=== PATIENT | female | born 1975 | race Caucasian/White ===

== ENCOUNTER → 2017-01-03 | Day surgery (SDC) | payer OTHER ==
[~2017-01-03] VITALS: Ht 165.1 cm; Wt 136.1 kg
[~2017-01-03] MED LIST: ABILIFY PO; EFFEXOR XR PO
--- NOTE | 2017-01-03 09:14 | Operative Report ---
Operative/Inv Procedure Report Surgery Date: 01/03/17 Name of Procedure: Laparoscopic Cholecystectomy Pre-Operative Diagnosis: Cholelithiasis/Cholecystitis Post-Operative Diagnosis: Same Estimated Blood Loss: less than 50ml Surgeon/Project Controls Specialist: KD HUNTER DO Anesthesia: general endotracheal tube IV Fluids: 900 cc Drains: None Specimens: Gallbladder Complications: None Condition: Stable Operative Indication: This is a 42-year-old female who underwent an abdominal ultrasound as part of a workup for bariatric surgery. She was found to have cholelithiasis and was complaining of on and off postprandial pain. A laparoscopic cholecystectomy was discussed in detail. All risks including but not limited to bleeding, infection , bile leak, and injury to surrounding duct/bowel were discussed in detail. The patient understood everything and decided to proceed. Operative/Procedure Note Note: The patient was brought to the operating room and placed on the operating room table in supine position. Venodyne stockings were placed and adequate general endotracheal anesthesia was obtained. The patient was prepped and draped in standard surgical fashion. We began the procedure by making a 2 cm transverse incision in the infraumbilical crease. The incision was carried down to the fascia, once the fascia was clearly visualized it was picked up between 2 raj clamps. The fascia was divided in the midline and once we entered the peritoneum 2 stay 0 Vicryl sutures were placed on each side. A 12 mm blunt port was inserted and the abdominal cavity was insufflated to 15 mmHg. A 10 mm 30 laparoscope was introduced and upon initial examination no obvious gross pathology was seen. We did note a distended gallbladder in the right upper quadrant. Accessory trocars were placed, all 5 mm, one in the epigastrium and 2 in the right upper quadrant (one in the midclavicular line and one in the anterior axillary line, both 2 fingerbreadths below the costal margin). The gallbladder was grasped with the lateralmost trocar and retracted up over the liver. Using the other 2 accessory trocars the infundibulum was grasped and the peritoneum was lysed using blunt dissection and using hook electrocautery. The cystic duct and cystic artery were visualized. The common bile duct was visualized and it was away from our area of dissection. The cystic duct and artery were skeletonized and divided between clips, 3 clips to stay and one clip on the gallbladder side for the duct and 2 clips to stay and one clip on the gallbladder side for the artery. The gallbladder was dissected off the liver bed using hook electrocautery maintaining hemostasis. Prior to completely removing the gallbladder off the liver bed we examined the area of dissection no obvious bile leak or bleeding was noted, the clips appeared to be in good position. The gallbladder was completely detached from the liver bed. We switched to a 5 mm laparoscope and a 10 mm Endobag was introduced through the umbilical trocar site. The gallbladder was placed in the bag and removed through the umbilicus. The abdomen was reinsufflated. We switched back to a 10 mm laparoscope and examined our area of dissection. No obvious bile leak or bleeding was noted. The right upper quadrant was irrigated until clear. All ports were removed under direct visualization, no obvious bleeding was noted. The umbilical trocar site was closed using 0 Vicryl suture. The skin was closed using 4-0 Monocryl. Steri-Strips and dressings were placed. The patient was successfully extubated and transferred to the recovery room in stable condition. The patient tolerated the procedure well with no complications. Findings: Distended gallbladder, multiple stones CC: BRITTANI GANN,FRANCIA Crump
== END ==
LOC: STS 02:49
DX: K80.10 Calculus of gallbladder with chronic cholecystitis without obstruction (principal); E66.01 Morbid (severe) obesity due to excess calories; Z68.43 Body mass index [BMI] 50.0-59.9, adult
CPT/HCPCS: 81025; 88304; J0690; J1644; J2250

== ENCOUNTER 2017-10-03 03:51 | Inpatient (IN) | payer OTHER ==
[~2017-10-03] VITALS: Ht 165.1 cm; Wt 132.4 kg
[~2017-10-03 03:51] MED LIST changes: +ABILIFY2 MG PO; +BUSPIRONE HCL15 M1 PO; +EFFEXOR XR75 M1 PO; +LISINOPRIL20 M1 PO
--- NOTE | 2017-10-03 13:58 | Operative Report ---
Operative/Inv Procedure Report Surgery Date: 10/03/17 Name of Procedure: Laparoscopic Sleeve Gastrectomy, Laparoscopic Hiatal hernia repair Pre-Operative Diagnosis: Morbid Obesity BMI 51, HTN, EVANS, Hiatal Hernia Post-Operative Diagnosis: Same Estimated Blood Loss: less than 50ml Surgeon/Leakage Tester: Ovi Garcia DO Anesthesia: general endotracheal tube IV Fluids: 1200 cc Drains: None Specimens: Stomach Complications: None Condition: Stable Operative Indication: This is a 42-year-old female that presented to the office for workup for bariatric surgery. After appropriate workup was completed I discussed with the patient the band, the sleeve, and the gastric bypass. The patient chose to undergo a sleeve gastrectomy. All risks including but not limited to bleeding, infection, leak, stricture, injury to surrounding bowel/esophagus/stomach/liver/ spleen, long-term reflux, DVT/PE, and mortality of 07/999 patients were discussed in detail. The patient understood everything and decided to proceed. Operative/Procedure Note Note: The patient was brought to the operating room and placed on the operating room table in supine position. Venodyne stockings were placed and adequate general endotracheal anesthesia was obtained. The patient was prepped and draped in standard surgical fashion. Began the procedure by making a 2 cm transverse incision supraumbilically and slightly to the left of the midline. Then using a 12 mm clear Visiport and a 10 mm 0 laparoscope, the abdominal cavity was accessed. Great care was taken to go through the anterior rectus sheath, the posterior rectus sheath, and through the peritoneum. Once we entered the peritoneum the abdominal cavity was insufflated to 15 mmHg. Upon initial examination no obvious gross pathology was seen. Accessory trocars were placed, 5 mm in the epigastrium for the Cesar liver retractor. The retractor was inserted and the liver was retracted anteriorly exposing the hiatus, small hiatal hernia was seen. 5 mm ports were placed in the right and left upper quadrant, a 5 mm left lateral port, and a 15 mm right lateral port. Began the procedure by mobilizing the greater curvature of the stomach approximately 7 cm from the pylorus. Once the retrogastric space was reached the whole greater curvature was mobilized maintaining hemostasis using Harmonic scalpel. Full hiatal dissection was performed, a small sliding hiatal hernia was seen. The left lazarus of the diaphragm was dissected away from the esophagus, reducing the hernia sac. We then brought our attention to the right lazarus, the pars flaccida was opened until the right lazarus was clearly visualized. Following this the right lazarus was dissected away from the esophagus as well and the esophagus was circumferentially dissected out of the chest. At the completion of dissection the esophagus was in the abdominal cavity for about 2-3 cm. The esophagus was retracted anteriorly and the hiatus was closed using 2-0 Ticron suture. At the completion of the closure there was ample room for the esophagus and the hiatus was adequately closed. Posterior adhesions were taken down using Harmonic scalpel as well. Once the stomach was adequately mobilized a 38 Setswana bougie was inserted and placed along the lesser curvature of the stomach. Once the bougie was in the appropriate position we began creating our sleeve, two 60 mm black staple loads with seamguard followed by two 60 mm purple staple loads with seamguard as well and finished with 60 mm purple plain load. Great care was taken to leave ample room at the incisura angularis, to prevent any twisting or kinking of the sleeve, to stay lateral to the esophagogastric fat pad, and to do a full fundal excision. At the completion of the staple line the staple line was examined, it appeared intact. Some bleeding was noted and was controlled using endoclips and 2-0 Vicryl suture imbricating the staple line. The bougie was removed, the sleeve was lying nicely without any twisting or kinking. The resected stomach was removed through the right lateral port site. The port and the left upper quadrant were irrigated until clear. All ports were removed under direct visualization no obvious bleeding was noted. The 15 mm port site fascia was closed using 0 Vicryl suture. The skin was closed using 4-0 Monocryl. Steri-Strips and dressings were placed. The patient was successfully extubated and transferred to the recovery room in stable condition. The patient tolerated the procedure well with no complications. Findings: 3 cm sliding hiatal hernia, 38 Fr bougie CC: Sonia GANN,Stanislav Curmp
--- NOTE | 2017-10-03 14:04 | Admission Core Measures ---
Acute Coronary Syndrome (CM) ACS Core Measures Acute Coronary Syndrome Diagnosis No Congestive Heart Failure (NEW) CHF Core Measures Congestive Heart Failure Diagnosis No Cerebrovascular Accident (NEW) CVA Core Measures CVA/TIA Diagnosis No Venous Thromboembolism VTE Core Brice (View Protocol) VTE Risk Factors Surgery No Mechanical VTE Prophylaxis d/t N/A MechProphylax Ordered No VTE Pharm Prophylaxis d/t NA PharmProphylax ordered Problem List As ranked by this Provider includes Assessment & Plan 1. Morbid obesity 2. Hypertension 3. Depression 4. S/P laparoscopic sleeve gastrectomy 5. History of repair of hiatal hernia HOME MEDS Home Med List Aripiprazole (Abilify) 2 MG TABLET 1 TAB PO DAILY DEPRESSION (Reported) Buspirone HCl 15 MG TABLET 1 TAB PO BID DEPRESSION (Reported) Lisinopril 20 MG TABLET 1 TAB PO DAILY BP (Reported) Venlafaxine HCl (Effexor XR) 75 MG CAP.ER.24H 1 CAP PO DAILY DEPRERSSION ( Reported)
--- NOTE | 2017-10-03 14:08 | Surg Short-stay <48hrs Dis Sum ---
Visit Information Visit Dates Admission Date: 10/03/17 Surgical Short Stay DC Summary Admission Diagnosis: Morbid Obesity (BMI 51), HTN, EVANS, Hiatal Hernia Final Diagnosis: same as above, s/p Surgery Date: 10/03/17 Name of Procedure: Laparoscopic Sleeve Gastrectomy, Laparoscopic Hiatal hernia repair Procedure(s): Surgery Date: 10/03/17 Name of Procedure: Laparoscopic Sleeve Gastrectomy, Laparoscopic Hiatal hernia repair Summary/Significant Findings: Electively scheduled laparoscopic sleeve gastrectomy, and laparoscopic hiatal hernia repair by on 10/03/17, for history of morbid obesity (BMI 51), HTN, EVANS, and hiatal hernia. Started on stage 1 bariatric diet post-operatively. Pain control transitioned from iv to oral medication. Discharged to home once tolerating stage 1 bariatric diet. Lovenox teaching done prior to discharge home , for pre-op risk score of 7. Condition at Discharge: stable Discharge Disposition: home or self care Discharge instructions provided to patient/family: Yes Post discharge follow-up plan: one week follow up with lovenox teaching done for continued use at home Copies to: Sonia GANN,Stanislav Crump
--- NOTE | 2017-10-03 14:11 | Patient Discharge Instructions ---
Discharge Instructions General Discharge Information You were seen/treated for: Morbid Obesity BMI 51, HTN, EVANS, Hiatal Hernia You had these procedures: Surgery Date: 10/03/17 Name of Procedure: Laparoscopic Sleeve Gastrectomy, Laparoscopic Hiatal hernia repair Watch for these problems: fever>101.3, increased pain, redness/swelling/drainage, dizziness, shortness of breath, chest pains No bath, but you may shower: Yes Other wound care: ok to remove outer dressings. leave white steri strips in place. keep incisions clean & dry. Diet Continue normal diet: No Recommended Diet: Bariatric Additional DIET Information: weekly bariatric stage diet advancement, as directed, as tolerated Activity Full Activity/No Limits: No Activity Self Limited: Yes Pounds, do NOT lift more than: 10 Other activity limits: no heavy lifting. no strenuous activity. walk frequently. Acute Coronary Syndrome Inclusion Criteria At DC or during hospital stay patient has or had the following: ACS DIAGNOSIS No Discharge Core Measures Meds if any: Prescribed or Continued at Discharge Meds if any: NOT Prescribed or Continued at Discharge Congestive Heart Failure Inclusion Criteria At DC or during hospital stay patient has or had the following: CHF DIAGNOSIS No Discharge Core Measures Meds if any: Prescribed or Continued at Discharge Meds if any: NOT Prescribed or Continued at Discharge Cerebrovascular accident Inclusion Criteria At DC or during hospital stay patient has or had the following: CVA/TIA Diagnosis No Discharge Core Measures Meds if any: Prescribed or Continued at Discharge Meds if any: NOT Prescribed or Continued at Discharge Venous thromboembolism Inclusion Criteria VTE Diagnosis No VTE Type NONE VTE Confirmed by (Test) NONE Discharge Core Measures - Per Current guidelines, there needs to be overlap - treatment for the first 5 days of Warfarin therapy. - If discharged on Warfarin prior to 5 days of - overlap therapy, the patient will need to be - assessed for post discharge needs including - *Post discharge parental anticoagulation - *Warfarin and/or parental anticoagulation education - *Follow up date to check INR post discharge At least 5 days overlap therapy as Inpatient No Meds if any: Prescribed or Continued at Discharge Note: Overlap Therapy is Warfarin and Anticoagulant Meds if any: NOT Prescribed or Continued at Discharge
[2017-10-03 15:54] VITALS: BP 140/80
[2017-10-03 19:55] VITALS: BP 130/100
--- NOTE | 2017-10-03 20:13 | PN- Bariatrics ---
Subjective Subjective: poc s/p lap sleeve/hh repair resting comfortably no major complaints at this time deneis cp, sob, no vomiting some nausea but states she feels better with reletex bracelet Objective Vital Signs and I&Os Vital Signs Date Time Temp Pulse Resp B/P B/P Pulse O2 O2 Flow FiO2 Mean Ox Delivery Rate 10/03 1954 98.2 88 18 130/100 93 Room Air 10/03 195 Room Air Room Air 10/03 1800 95 Room Air 10/03 1600 92 Room Air 10/03 1554 98.0 96 18 140/80 92 Room Air Intake & Output 10/03 1600 10/03 0800 10/03 0000 / 1600 10/02 0800 10/02 0000 Intake Total Output Total Balance Patient 292 lb Weight Weight Reported by Patient Measurement Method Physical Exam: cv: rrr lungs: clear abd: soft, drsg dry expected pain to palp ext: warm distal cms intact Assessment/Plan Assessment/Plan surgical stable plan encouraged to ambulate titrate pain meds antiemetics as needed re eval in am for possible ugi if nausea persists Core Measures Venous Thromboembolism VTE Risk Factors Surgery No Mechanical VTE Prophylaxis d/t N/A MechProphylax Ordered No VTE Pharm Prophylaxis d/t NA PharmProphylax ordered
[2017-10-04] VITALS: BP 126/98
[2017-10-04 06:54] VITALS: BP 122/84
--- NOTE | 2017-10-04 07:47 | PN- Bariatrics ---
Subjective Subjective: Patient reports postop pain, which is well controlled. Denies n/v/f/c. Reports having nothing to eat or drink after surgery. Denies passing flatus, lightheadedness or dizziness. Objective Vital Signs and I&Os Vital Signs Date Time Temp Pulse Resp B/P B/P Pulse O2 O2 Flow FiO2 Mean Ox Delivery Rate 10/04 0654 98.9 82 18 122/84 91 / 0400 94 Room Air 10/04 0200 93 Room Air 10/04 0000 93 Room Air 10/04 0000 98.4 89 18 126/98 93 / 2200 93 Room Air / 1955 98.2 88 18 130/100 93 Room Air 10/03 1952 Room Air Room Air / 1800 95 Room Air 10/03 1600 92 Room Air 10/03 1554 98.0 96 18 140/80 92 Room Air Intake & Output 10/04 1600 10/04 0800 /08 0000 / 1600 10/03 0800 03/ 0000 Intake Total 530 1725 40 Output Total 1200 600 0 Balance -670 1125 40 Intake, IV 530 1725 40 Intake, Oral 0 0 0 Number 0 0 0 Bowel Movements Output, Urine 1200 600 0 Patient 292 lb 292 lb Weight Weight Reported by Patient Measurement Method Physical Exam: Gen - nad Cardiac - s1s2, rrr Lungs - ctab Abd - soft, obese, 6 dressings c/d/i, appropriately tender, no rebound/guarding noted, absent bowels sounds Current Medications: Current Medications Sig/Meeta Start time Last Medication Dose Route Stop Time Status Admin Acetaminophen 1,000 MG Q6 10/03 1800 AC 10/04 N/A 1 UNIT IV 10/04 1214 0544 Aripiprazole 2 MG DAILY 10/04 1000 AC PO Buspirone HCl 15 MG BID 10/03 2200 AC 10/03 PO 2057 Cefazolin Sodium 3,000 MG IQ8 10/03 2000 CAN IV 10/04 0801 Cefazolin Sodium 3,000 MG Q8H 10/03 2000 DC 10/04 Sodium Chloride 100 ML IV 10/04 0459 0429 Cefazolin Sodium 3,000 MG ONCE 10/03 0000 DC IV 10/03 2359 Dexamethasone 8 MG ONCE PRN 10/03 1615 AC IV PUSH Dextrose/Lactated 1,000 ML Q8H 10/03 1615 DC 10/03 Ringer's IV 1627 Fentanyl Citrate 250 MCG .STK-MED ONE 10/03 1135 DC IM 10/03 1136 Heparin Sodium 5,000 UNIT Q8 10/03 2200 AC 10/04 (Porcine) SC 0547 Heparin Sodium 0 .STK-MED ONE 10/03 0922 DC (Porcine) .ROUTE Heparin Sodium 5,000 UNIT ONCE 10/03 0000 DC (Porcine) SC 10/03 2359 Hydrocodone Bitart/ 15 ML Q6P PRN 10/03 1615 AC 10/03 Acetaminophen PO 1630 Ketorolac 30 MG Q6-PRN PRN 10/03 1800 AC Tromethamine IV Lactated Ringer's 1,000 ML Q13H 10/04 0830 AC IV Lactated Ringer's 1,000 ML Q8H 10/04 0730 DC IV Lisinopril 20 MG DAILY 10/04 1000 AC PO Midazolam HCl 2 MG .STK-MED ONE 10/03 1135 DC IM 10/03 1136 Morphine Sulfate 2 MG Q2-3 HRS NEEDED.. 10/03 1615 AC IV Morphine Sulfate 4 MG .STK-MED ONE 10/03 1449 DC IM 10/03 1450 Ondansetron HCl 4 MG Q6P PRN 10/03 1615 AC 10/04 IV 0201 Pantoprazole Sodium 40 MG DAILY 10/04 1000 AC IV Simethicone 40 MG Q6P PRN 10/03 1615 AC 10/04 PO 0015 Venlafaxine HCl 75 MG DAILY 10/04 1000 AC PO Results Last 48 Hours of Labs: Laboratory Tests 10/04 10/03 0630 0856 Chemistry Sodium Pending Potassium Pending Chloride Pending Carbon Dioxide Pending Anion Gap Pending BUN Pending Creatinine Pending BUN/Creatinine Ratio Pending Glucose Pending Magnesium Pending Hematology CBC w Diff Pending WBC Pending RBC Pending Hgb Pending Hct Pending MCV Pending MCH Pending MCHC Pending RDW Pending Plt Count Pending MPV Pending Urines Urine Test NEGATIVE Assessment/Plan Assessment/Plan 42 F POD 1 s/p lap sleeve, who is recovering well Cancel UGI Advance to stg 1 diet Cont IVF Pain meds prn Home med on board GI ppx on board DVT ppx - hsq/alps/ambulate Encourage IS Lovenox teaching F/U labs Anticipate d/c within 24-48 hrs D/w Dr. Garcia Core Measures Venous Thromboembolism VTE Risk Factors Surgery No Mechanical VTE Prophylaxis d/t N/A MechProphylax Ordered No VTE Pharm Prophylaxis d/t NA PharmProphylax ordered
[2017-10-04 08:00] VITALS: BP 118/72
[2017-10-04 08:34] LABS: ABSOLUTE BASOPHIL COUNT 0 /CUMM (0.0-0.2); ABSOLUTE EOSINOPHIL COUNT 0 /CUMM (0.0-0.7); ABSOLUTE LYMPH COUNT 1.1 /CUMM (1.2-3.4); BASOPHIL % 0 % (0.0-2.0); EOSINOPHIL % 0 % (0-5); GRANULOCYTE % 86.2 % (42.2-75.2); HEMATOCRIT 41.4 % (37-47); MEAN CORPUSCULAR HGB 28.8 PG (27.0-31.0); MEAN CORPUSCULAR HGB CONC 32.9 G/DL (33.0-37.0); MEAN CORPUSCULAR VOLUME 87.6 FL (81.0-99.0); MEAN PLATELET VOLUME 9.1 FL (7.4-10.4); PLATELET COUNT 419 /CUMM (130-400); RBC DISTRIBUTION WIDTH 14.7 % (11.5-14.5); RED BLOOD CELL CT 4.72 /CUMM (4.20-5.40); WHITE BLOOD CELL COUNT 15.1 /CUMM (4.8-10.8)
[2017-10-04 12:00] VITALS: BP 122/80
[2017-10-04 14:00] VITALS: BP 130/83
[2017-10-04] MEDS ORDERED: VENLAFAXINE H37.5 M3 PO (14:52)
[2017-10-04] MEDS ORDERED: HYDROCODON-ACET15 ML PO (15:10)
[2017-10-04] MEDS ORDERED: PREVACID15 M1 PO (15:14)
== END 2017-10-04 16:55 | DRG 403 ==
LOC: 2NB 03:51 → SDA 03:51 → ENRESERV 14:43 → ENTRNSPT 15:34 → EDTRNSPT 15:45 → EDTRNSPTSTS 15:45 → CMPTRNSPT 16:03 → 2NB 16:07 → ENTRNSPT 10-04 16:47 → EDTRNSPTSTS 10-04 16:54 → 2NB 10-04 16:55 → CMPTRNSPT 10-04 17:01
PROVIDERS: Physician Assistant
PROC: 0BQT4ZZ Repair Diaphragm, Percutaneous Endoscopic Approach (ICD-10-PCS; principal; 2017-10-03)
PROC: 0DB64Z3 Excision of Stomach, Percutaneous Endoscopic Approach, Vertical (ICD-10-PCS; principal; 2017-10-03)
DX: E66.01 Morbid (severe) obesity due to excess calories (principal); Z68.43 Body mass index [BMI] 50.0-59.9, adult; F41.9 Anxiety disorder, unspecified; F32.9 Major depressive disorder, single episode, unspecified; Z87.891 Personal history of nicotine dependence; I10 Essential (primary) hypertension; G47.33 Obstructive sleep apnea (adult) (pediatric); K44.9 Diaphragmatic hernia without obstruction or gangrene
CPT/HCPCS: 36592; 81025; 82436; C9399; J0131; J0690; J1644; J2405; J3490; J7120